=== PATIENT | male | born 1985 | race Caucasian/White ===

== ENCOUNTER 2025-04-11 17:46 | Emergency (ER) | payer OTHER ==
[~2025-04-11] VITALS: Ht 170.2 cm; Wt 77.1 kg
[2025-04-11 18:27] VITALS: TEMP 98.7
[2025-04-11 19:48] LABS: BASOPHILS % 0.3 % (0.0-1.0); EOSINOPHILS # (AUTO) 0.1 (0.0-0.4); EOSINOPHILS % 0.5 % (0.0-6.0); HEMATOCRIT 44.7 % (38.2-49.6); HEMOGLOBIN 15.2 g/dL (14.0-18.0); LYMPHOCYTES # (AUTO) 3.4 (1.0-3.2); LYMPHOCYTES % 25.9 % (18.0-39.1); MEAN CORPUSCULAR HEMOGLOBIN 30.1 pg (28-32); MEAN CORPUSCULAR VOLUME 88.5 fL (81-99); MONOCYTES # (AUTO) 0.9 (0.2-0.8); MONOCYTES % 7.1 % (4.4-11.3); NEUTROPHILS # (AUTO) 8.6 (2.1-6.9); NEUTROPHILS % 65.9 % (38.7-80.0); PLATELET COUNT 259 x10e3/uL (140-360); RED BLOOD COUNT 5.05 x10e6/uL (4.3-5.7); RED CELL DISTRIBUTION WIDTH 13.8 % (11.7-14.4); WHITE BLOOD COUNT 13.07 x10e3/uL (4.8-10.8)
[2025-04-11] MEDS ORDERED: SODIUM CHLORIDE 0.9% 1000ML 1,000 ML ONE (20:08)
[2025-04-11 20:11] LABS: ALBUMIN 4.2 g/dL (3.5-5.0); ALBUMIN/GLOBULIN RATIO 1.1 (0.8-2.0); ANION GAP 14.6 mmol/L (8-16); BILIRUBIN,TOTAL 0.5 mg/dL (0.2-1.2); CALCIUM 9.6 mg/dL (8.4-10.2); CREATININE, SERUM 0.88 mg/dL (0.72-1.25); POTASSIUM 4.6 mmol/L (3.5-5.1); TOTAL PROTEIN 8.1 g/dL (6.5-8.1)
[2025-04-11 20:30] LABS: TROPONIN I < 0.001 ng/mL (0-0.300)
[2025-04-11 21:15] VITALS: PULSE 88; RESP 18
[2025-04-11] MEDS ORDERED: DICYCLOMINE HCL20 MG PO (21:22)
[2025-04-11] MEDS ORDERED: HYDROXYZINE HCL25 MG PO (21:22)
[2025-04-11] MEDS ORDERED: ONDANSETRON ODT4 MG SL (21:22)
[2025-04-11 21:39] VITALS: BP 114/69; PULSE 87; RESP 18; TEMP 98.3; O2SAT 99
== END 2025-04-11 21:40 | disposition home or self-care (01) ==
LOC: ER 20:55
DX: R42 Dizziness and giddiness (principal); F11.23 Opioid dependence with withdrawal; F17.210 Nicotine dependence, cigarettes, uncomplicated
CPT/HCPCS: 36415; 71045; 80053; 83735; 84484; 85025; 99284; J7030